=== PATIENT | female | born 1995 | race Caucasian/White ===

== ENCOUNTER 2017-02-07 23:19 | Emergency (ER) | payer SELFPAY ==
[~2017-02-07] VITALS: Ht 172.7 cm; Wt 106.6 kg
--- NOTE | 2017-02-07 23:47 | PHYS DOC ---
Adult General Chief Complaint Chief Complaint: ANKLE PROBLEM HPI HPI Patient is a 21 year old female presents emergency department stating that she was running in the driveway and she fell. She is stating that she is having pain on the right lateral part of the ankle as well as the foot area. She does have swelling noted along the fifth metatarsal area and follow-up right lateral ankle. Patient does have an abrasion noted on the lateral part of the foot. Patient with peripheral pulses 2+ cap refill brisk less than 2 seconds. Taken ibuprofen 800 mg as well as ice packs placed on the area. She does present with a Dani wrap and placed Review of Systems Review of Systems Constitutional: Denies fever or chills [] Eyes: Denies change in visual acuity, redness, or eye pain [] HENT: Denies nasal congestion or sore throat [] Respiratory: Denies cough or shortness of breath [] Cardiovascular: No additional information not addressed in HPI [] GI: Denies abdominal pain, nausea, vomiting, bloody stools or diarrhea [] : Denies dysuria or hematuria [] Musculoskeletal: Denies back pain. C/o right ankle and foot pain Integument: Denies rash or skin lesions [] Neurologic: Denies headache, focal weakness or sensory changes [] Physical Exam Physical Exam Constitutional: Well developed, well nourished, no acute distress, non-toxic appearance. [] HENT: Normocephalic, atraumatic, bilateral external ears normal, oropharynx moist, no oral exudates, nose normal. [] Eyes: PERRLA, EOMI, conjunctiva normal, no discharge. [] Neck: Normal range of motion, no tenderness, supple, no stridor. [] Cardiovascular:Heart rate regular rhythm Lungs & Thorax: No respiratory distress noted Skin: Warm, dry, no erythema, no rash. [] Back: No tenderness Extremities: Right lateral ankle, right lateral foot tenderness, no cyanosis, no clubbing, ROM intact, no edema. Patient with swelling noted along the lateral part of the ankle and along the lateral part of the foot. Patient does have an abrasion noted on the fifth metatarsal area. Peripheral pulses are 2+ cap refill brisk less than 2 seconds patient is able to move her toes without difficulty. Sensation noted to the right fifth toe. Neurologic: Alert and oriented X 3, normal motor function, normal sensory function, no focal deficits noted. [] Psychologic: Affect normal, judgement normal, mood normal. [] Current Patient Data Lab Values Laboratory Tests Test 02/07/17 22:51 POC Urine HCG, Qualitative Hcg negative (Negative) EKG EKG [] Radiology/Procedures Radiology/Procedures [] Course & Med Decision Making Course & Med Decision Making Pertinent Labs and Imaging studies reviewed. (See chart for details) X-rays were negative for any fractures in the foot or the ankle area. Also recommended patient to use ibuprofen 800 mg every 8 hours. They sure you eat when taking this medication to prevent upset stomach. Stop taking if you develop an upset stomach. Patient will be placed in the Dani wrap in which she was resents to the ER with an will be placed in a Air-Stirrup splint. Recommended for the Dani wrap for the next 5-7 days in the Air-Stirrup splint for the next 7-10 days. Ice packs on 20 minutes off 20 minutes several times a day elevation as much as possible. Patient will be discharged home in stable condition signs symptoms to return back to emergency department as been provided. Patient will be provided with orthopedic name and number to follow up with if she continues to have pain and discomfort. [] Dragon Disclaimer Dragon Disclaimer This electronic medical record was generated, in whole or in part, using a voice recognition dictation system. Departure Departure Impression: Primary Impression: Right ankle sprain Disposition: 01 HOME, SELF-CARE Condition: STABLE Referrals: NO PCP (PCP) MIRIAN ORO MD Patient Instructions: Ankle Sprain, [id number] Additional Instructions: Foot and ankle x-rays were negative for any bony abnormalities. Ibuprofen 800 mg every 8 hours with food stop taking few develop an upset stomach. Ice packs on 20 minutes off 20 minutes several times a day. Wear the Dani wrap for the next 5-7 days the Air-Stirrup splint for the next 7- 10 days. Elevation as much as possible Follow-up with orthopedic as needed in the next 5-7 days. Return back to emergency prior signs symptoms of become worse. KHARI CABALLERO APRN Feb 07, 2017 23:46
[2017-02-08 00:40] VITALS: BP 122/77
--- NOTE | 2017-02-08 08:37 | RAD ---
ANKLE RIGHT 3V Clinical Indication: Fell and twisted ankle with pain. Comparison: None. Technique: Frontal, oblique and lateral views of the right ankle are obtained. Findings: No acute fracture or dislocation is seen. Ankle mortise is maintained. Surrounding soft tissues demonstrate no acute finding. IMPRESSION: No acute osseous injury seen.
--- NOTE | 2017-02-08 08:45 | RAD ---
FOOT RIGHT 3V Clinical Indication: fell twisted ankle and foot, Comparison: None. Technique: Frontal, oblique and lateral views of the right foot are obtained. Findings: No acute fracture or dislocation is seen. Joint spaces are maintained. Surrounding soft tissues demonstrate no acute finding. IMPRESSION: No acute osseous injury seen.
== END 2017-02-08 00:48 | disposition home or self-care (01) ==
LOC: ER 23:19
DX: S93.401A Sprain of unspecified ligament of right ankle, initial encounter (principal); W18.39XA Other fall on same level, initial encounter; Y93.89 Activity, other specified; Y99.8 Other external cause status; Y92.89 Other specified places as the place of occurrence of the external cause
CPT/HCPCS: 73610; 73630; 81025; 99285-25

== ENCOUNTER 2017-05-10 15:49 | Emergency (ER) | payer SELFPAY ==
[~2017-05-10] VITALS: Ht 170.2 cm; Wt 113.4 kg
[2017-05-10] MEDS ORDERED: IBUPROFEN 400 MG TABLET. PO ONE (16:15)
[2017-05-10 16:50] VITALS: BP 110/60
--- NOTE | 2017-05-10 16:50 | PHYS DOC ---
Past Medical History Past Medical History: No Pertinent History Past Surgical History: No Surgical History Alcohol Use: None Drug Use: None Adult General Chief Complaint Chief Complaint: CHEST PAIN HPI HPI Patient is a 21 year old female brought from work by EMS with the complaint of sharp stabbing pains in the middle of her lower chest which started about 2:30 today. It did not hit her suddenly, it began slowly. It makes her feel like it' s hard to breathe. She's had these pains intermittently for about one year. It does not seem to bother her with exertion or any particular activity. She believes it does sometimes bother her when she drinks an energy drink. States that her mother has given her ibuprofen for it in the past and that has seemed to help. 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 She was at work today when it started and her coworkers called 911. Patient's mother came to the ED and stated that she believes that the pain may be related to drinking energy drinks. She has tried to get the patient to calm her breathing down and take ibuprofen for the pain in the past but she was not able to talk to her today before the patient was transported here. Patient has no chronic medical problems. She is on no medications. Review of Systems Review of Systems Constitutional: Denies fever or chills [] Eyes: Denies change in visual acuity, redness, or eye pain [] HENT: Denies nasal congestion or sore throat [] Respiratory: Denies cough Cardiovascular: As in history of present illness for noncardiac sounding chest pain GI: Denies abdominal pain, nausea, vomiting, bloody stools or diarrhea [] : Denies dysuria or hematuria [] Musculoskeletal: Denies back pain or joint pain [] Integument: Denies rash or skin lesions [] Neurologic: Denies headache, focal weakness or sensory changes [] Current Medications Current Medications Current Medications Medications (Trade) Dose Ordered Sig/Kalen Start Time Stop Time Status Last Admin Dose Admin Ibuprofen (Motrin) 400 mg 1X ONCE 05/10/17 16:15 05/10/17 16:16 DC 05/10/17 16:14 400 MG Allergies Allergies Allergies Coded Allergies Type Severity Reaction Last Updated Verified No Known Drug Allergies 05/10/17 No Physical Exam Physical Exam Constitutional: Well developed, well nourished, no acute distress, non-toxic appearance. Pulse ox on room air 98-99%. Alert, mentating normally, warm and dry , no acute distress whatsoever. HENT: Normocephalic, atraumatic, bilateral external ears normal, nose normal. [ ] Eyes: conjunctiva normal, no discharge. [] Neck: Normal range of motion, no stridor. [] Cardiovascular:Heart rate regular rhythm, no murmur [] Lungs & Thorax: Bilateral breath sounds clear to auscultation Chest wall mildly tender to palpation over mid sternum without overlying skin abnormality, no swelling, no deformity Abdomen: Bowel sounds normal, soft, no tenderness, no masses, no pulsatile masses. [] Skin: Warm, dry, no erythema, no rash. [] Extremities: No tenderness, no cyanosis, no clubbing, ROM intact, no edema. [] Neurologic: Alert and oriented X 3, normal motor function, normal sensory function, no focal deficits noted. [] Current Patient Data Vital Signs Vital Signs Date Time Temp Pulse Resp B/P (MAP) Pulse Ox O2 Delivery O2 Flow Rate FiO2 05/10/17 16:50 68 18 110/60 (77) 98 Room Air 05/10/17 15:49 98.5 98.5 EKG EKG 12-lead EKG read by me. Sinus rhythm. Heart rate 57. There are no acute ST or T wave changes indicative of ischemia or infarction. No STEMI. 1552 [] Radiology/Procedures Radiology/Procedures [] Two-view chest x-ray read by me. No acute cardiopulmonary findings. Course & Med Decision Making Course & Med Decision Making Pertinent Labs and Imaging studies reviewed. (See chart for details) 21-year-old female who I believe has some developmental disability was brought from work by EMS with some sharp midsternal chest pains that she has had intermittently for one year. Vital signs are stable, she is not tachycardic, pulse ox on room air 98-99%. Chest x-ray, EKG did not reveal any concern for serious cause of the symptoms. The patient was given a dose of ibuprofen and stated that her pain was all gone. I discussed this with the patient and her mother. See instructions for plan. [] Dragon Disclaimer Dragon Disclaimer This electronic medical record was generated, in whole or in part, using a voice recognition dictation system. Departure Departure Impression: Primary Impression: Non-cardiac chest pain Disposition: HOME, SELF-CARE Condition: STABLE Referrals: NO PCP (PCP) Patient Instructions: Chest Pain (Nonspecific), [id number] Additional Instructions: As we discussed, today your evaluation in the emergency department did not show as the cause for your chest pain, but also we are not finding any serious cause. As we discussed, I do think it would be reasonable to try stopping the energy drinks for a week or 2 and see if this helps your pain. For pain, when you have it, try ibuprofen 400-600 mg every 6-8 hours. If this is not helping and you continue to have it, see your primary care doctor. LOAN STOREY MD May 10, 2017 16:50
--- NOTE | 2017-05-10 16:53 | RAD ---
PA and lateral chest. History: Sharp midsternal chest pain, dyspnea PA and lateral views were taken of the chest. The lungs are clear. Heart is normal in size. There is no pleural effusion. The patient has not taken a deep inspiration. Impression: 1. No acute infiltrates.
--- NOTE | 2017-05-10 18:16 | EKG ---
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
== END 2017-05-10 16:57 | disposition home or self-care (01) ==
LOC: ER 15:49
DX: R07.89 Other chest pain (principal)
CPT/HCPCS: 71020; 93005; 99284-25

== ENCOUNTER 2018-04-19 20:53 | Emergency (ER) | payer SELFPAY | END 2018-04-19 21:41 | disposition home or self-care (01) | LOC: ER 21:41 | DX: J02.9 Acute pharyngitis, unspecified (principal); H92.09 Otalgia, unspecified ear | CPT/HCPCS: 99283 ==

== ENCOUNTER 2019-07-17 18:30 | Emergency (ER) | payer MEDICAID ==
[~2019-07-17] VITALS: Ht 170.2 cm; Wt 113.4 kg
[~2019-07-17 18:30] MED LIST: AMOX1TAB61 PO; PRED-220 PO
[2019-07-17] MEDS ORDERED: fentaNYL PF VIAL 100 MCG/2 ML VIAL IV ONE (19:15)
--- NOTE | 2019-07-17 19:17 | PHYS DOC ---
Past Medical History Past Medical History: No Pertinent History Past Surgical History: Alcohol Use: None Drug Use: None Adult General Chief Complaint Chief Complaint: ABDOMINAL PAIN HPI HPI 23 female presents to the emergency Department with complaints of epigastric pain, sharp, tightness that radiates to her back. She denies any nausea or vomiting, fever, diarrhea or chills. States pain does get worse with eating. She states this is going on with however is now delivered. No workup was done at that time it was more hiatal hernia. Review of Systems Review of Systems Constitutional: Denies fever or chills [] Respiratory: Denies cough or shortness of breath [] Cardiovascular: No additional information not addressed in HPI [] GI: + epigastric abdominal pain, nausea, vomiting, bloody stools or diarrhea [] : Denies dysuria or hematuria [] Musculoskeletal: Denies back pain or joint pain [] Neurologic: Denies headache, focal weakness or sensory changes [] All other systems were reviewed and found to be within normal limits, except as documented in this note. Current Medications Current Medications Current Medications Medications (Trade) Dose Ordered Sig/Kalen Start Time Stop Time Status Last Admin Dose Admin Fentanyl Citrate (Fentanyl 2ml Vial) 50 mcg 1X ONCE 07/17/19 19:15 07/17/19 19:16 DC 07/17/19 19:24 50 MCG Allergies Allergies Allergies Coded Allergies Type Severity Reaction Last Updated Verified No Known Drug Allergies 05/10/17 No Physical Exam Physical Exam Constitutional: Well developed, well nourished, no acute distress, non-toxic appearance. [] HENT: Normocephalic, atraumatic, bilateral external ears normal, oropharynx moist, no oral exudates, nose normal. [] Eyes: PERRLA, EOMI, conjunctiva normal, no discharge. [] Cardiovascular:Heart rate regular rhythm, no murmur [] Lungs & Thorax: Bilateral breath sounds clear to auscultation [] Abdomen: Bowel sounds normal, soft, TTP RUQ and epigastric region[] Skin: Warm, dry, no erythema, no rash. [] Back: No tenderness, no CVA tenderness. [] Extremities: No tenderness, no cyanosis, no clubbing, ROM intact, no edema. [] Neurologic: Alert and oriented X 3, no focal deficits noted. [] Psychologic: Affect normal, judgement normal, mood normal. [] Current Patient Data Vital Signs Vital Signs Date Time Temp Pulse Resp B/P (MAP) Pulse Ox O2 Delivery O2 Flow Rate FiO2 07/17/19 19:24 Room Air 07/17/19 18:55 98.3 64 14 136/68 (90) 97 98.3 Lab Values Laboratory Tests Test 07/17/19 19:21 07/17/19 19:27 White Blood Count 6.6 x10^3/uL (4.0-11.0) Red Blood Count 5.12 x10^6/uL (3.50-5.40) Hemoglobin 13.3 g/dL (12.0-15.5) Hematocrit 40.0 % (36.0-47.0) Mean Corpuscular Volume 78 fL (79-100) L Mean Corpuscular Hemoglobin 26 pg (25-35) Mean Corpuscular Hemoglobin Concent 33 g/dL (31-37) Red Cell Distribution Width 13.7 % (11.5-14.5) Platelet Count 215 x10^3/uL (140-400) Neutrophils (%) (Auto) 60 % (31-73) Lymphocytes (%) (Auto) 30 % (24-48) Monocytes (%) (Auto) 7 % (0-9) Eosinophils (%) (Auto) 3 % (0-3) Basophils (%) (Auto) 1 % (0-3) Neutrophils # (Auto) 3.9 x10^3/uL (1.8-7.7) Lymphocytes # (Auto) 2.0 x10^3/uL (1.0-4.8) Monocytes # (Auto) 0.5 x10^3/uL (0.0-1.1) Eosinophils # (Auto) 0.2 x10^3/uL (0.0-0.7) Basophils # (Auto) 0.1 x10^3/uL (0.0-0.2) Sodium Level 142 mmol/L (136-145) Potassium Level 3.7 mmol/L (3.5-5.1) Chloride Level 106 mmol/L (98-107) Carbon Dioxide Level 27 mmol/L (21-32) Anion Gap 9 (6-14) Blood Urea Nitrogen 13 mg/dL (7-20) Creatinine 0.8 mg/dL (0.6-1.0) Estimated GFR (Cockcroft-Gault) 90.5 BUN/Creatinine Ratio 16 (6-20) Glucose Level 119 mg/dL (70-99) H Calcium Level 9.3 mg/dL (8.5-10.1) Total Bilirubin 0.2 mg/dL (0.2-1.0) Aspartate Amino Transferase (AST) 40 U/L (15-37) H Alanine Aminotransferase (ALT) 81 U/L (14-59) H Alkaline Phosphatase 85 U/L (46-116) Total Protein 7.1 g/dL (6.4-8.2) Albumin 3.7 g/dL (3.4-5.0) Albumin/Globulin Ratio 1.1 (1.0-1.7) Lipase 97 U/L (73-393) POC Urine HCG, Qualitative Hcg negative (Negative) Laboratory Tests 07/17/19 19:21 Laboratory Tests 07/17/19 19:21 EKG EKG [] Radiology/Procedures Radiology/Procedures [facility] [address] [place] [address] IMAGING REPORT Signed PATIENT: BOAZ CELAYAACCOUNT: [id number] : 1995 LOCATION: ER AGE: 23 SEX: F EXAM STATUS: REG ER ORD. PHYSICIAN: BRONSON WALLIS MD REASON: RUQ PROCEDURE: ABDOMEN LTD CLINICAL HISTORY: Right upper quadrant pain COMPARISON: None available. TECHNIQUE: Limited ultrasound examination of the right upper quadrant of the abdomen was performed. Exam is mildly limited by overlying bowel gas. FINDINGS: Visualized portions of the pancreas are unremarkable. Liver: The liver measures 18.8 cm cm in length in the right mid clavicular line. Increased hepatic echogenicity relative to the right kidney consistent with hepatic steatosis. There is no focal abnormality of the liver. Portal and hepatic venous flow is confirmed with normal waveforms. Gallbladder/Biliary: The gallbladder is distended with gallbladder sludge. No discrete gallstone is seen. No wall thickening or pericholecystic fluid.. There is no pain with direct transducer pressure over the gallbladder.The common bile duct measures 0.4 cm. The right kidney measures 11.2 cm in bipolar length. No focal renal lesion. No hydronephrosis. No hydroureter. Pancreas is not well seen. There is no free fluid in the subhepatic space. IMPRESSION: 1. Gallbladder sludge without sonographic evidence for acute cholecystitis. 2. Hepatomegaly and hepatic steatosis. Electronically signed by: Andrew Ortega MD (07/17/2019 8:21 PM) [facility] DICTATED and SIGNED BY: ANDREW ORTEGA MD DATE: 07/17/192020 [] Course & Med Decision Making Course & Med Decision Making Pertinent Labs and Imaging studies reviewed. (See chart for details) []23 female presents to the emergency Department with complaints of epigastric pain, sharp, tightness that radiates to her back. She denies any nausea or vomiting, fever, diarrhea or chills. States pain does get worse with eating. She states this is going on with however is now delivered. No workup was done at that time it was more hiatal hernia. Labs/Imaging reviewed. Fentanyl IV x 1 for pain. AST/ALT mildly elevated, lipase/alk phos normal. US reviewed with evidence of biliary sludge, no evidence of sonographic cholecystitis. Recommend dietary changes, pain medications, nausea medication. Recommend follow with primary care physician and elective evaluation with surgery as an outpatient. Number provided for patient to contact, did not call surgery in ER Dragregulo Disclaimer Dragregulo Disclaimer This electronic medical record was generated, in whole or in part, using a voice recognition dictation system. 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 Please contact their office to make appointment) Return to the ER with complaints of worsening pain, fever, intractable nausea/vomiting Scripts Ondansetron Hcl (ZOFRAN) 4 Mg Tablet 1 TAB PO PRN Q6-8HRS for nausea, #12 TAB Prov: BRONSON WALLIS MD 07/17/19 Hydrocodone/Apap 5-325 (NORCO 5-325 TABLET) 1 Each Tablet 1 TAB PO PRN Q6HRS PRN for PAIN, #10 TAB 0 Refills Prov: BRONSON WALLIS MD 07/17/19 BRONSON WALLIS MD Jul 17, 2019 19:17
[2019-07-17 19:31] LABS: BASO # 0.1 x10^3/uL (0.0-0.2); BASO % 1 % (0-3); EOS # 0.2 x10^3/uL (0.0-0.7); EOS % 3 % (0-3); HEMOGLOBIN 13.3 g/dL (12.0-15.5); LYMPH % 30 % (24-48); MEAN CORPUSCULAR HEMOGLOBIN 26 pg (25-35); MEAN CORPUSCULAR HGB CONC 33 g/dL (31-37); MEAN CORPUSCULAR VOLUME 78 fL (79-100); MONO # 0.5 x10^3/uL (0.0-1.1); MONO % 7 % (0-9); NEUT # 3.9 x10^3/uL (1.8-7.7); NEUT % 60 % (31-73); PLATELET COUNT 215 x10^3/uL (140-400); RED BLOOD COUNT 5.12 x10^6/uL (3.50-5.40); RED CELL DISTRIBUTION WIDTH 13.7 % (11.5-14.5); WHITE BLOOD COUNT 6.6 x10^3/uL (4.0-11.0)
[2019-07-17 19:38] LABS: CALCIUM 9.3 mg/dL (8.5-10.1); CREATININE 0.8 mg/dL (0.6-1.0); GFR 90.5; POTASSIUM 3.7 mmol/L (3.5-5.1)
[2019-07-17 19:44] LABS: ALBUMIN 3.7 g/dL (3.4-5.0); ALBUMIN/GLOBULIN RATIO 1.1 (1.0-1.7); TOTAL BILIRUBIN 0.2 mg/dL (0.2-1.0); TOTAL PROTEIN 7.1 g/dL (6.4-8.2)
--- NOTE | 2019-07-17 20:24 | RAD ---
CLINICAL HISTORY: Right upper quadrant pain COMPARISON: None available. TECHNIQUE: Limited ultrasound examination of the right upper quadrant of the abdomen was performed. Exam is mildly limited by overlying bowel gas. FINDINGS: Visualized portions of the pancreas are unremarkable. Liver: The liver measures 18.8 cm cm in length in the right mid clavicular line. Increased hepatic echogenicity relative to the right kidney consistent with hepatic steatosis. There is no focal abnormality of the liver. Portal and hepatic venous flow is confirmed with normal waveforms. Gallbladder/Biliary: The gallbladder is distended with gallbladder sludge. No discrete gallstone is seen. No wall thickening or pericholecystic fluid.. There is no pain with direct transducer pressure over the gallbladder.The common bile duct measures 0.4 cm. The right kidney measures 11.2 cm in bipolar length. No focal renal lesion. No hydronephrosis. No hydroureter. Pancreas is not well seen. There is no free fluid in the subhepatic space. IMPRESSION: 1. Gallbladder sludge without sonographic evidence for acute cholecystitis. 2. Hepatomegaly and hepatic steatosis. Electronically signed by: Andrew Ortega MD (07/17/2019 8:21 PM) [facility]
[2019-07-17 20:27] VITALS: BP 128/59
[2019-07-17] MEDS ORDERED: HYDR-3164 PO (20:31)
[2019-07-17] MEDS ORDERED: ONDA4TAB7 PO (20:31)
== END 2019-07-17 20:52 | disposition home or self-care (01) ==
LOC: ER 18:30
DX: K80.50 Calculus of bile duct without cholangitis or cholecystitis without obstruction (principal); R16.0 Hepatomegaly, not elsewhere classified; K76.0 Fatty (change of) liver, not elsewhere classified
CPT/HCPCS: 36415; 76705; 80053; 81025; 83690; 85025; 96374; 99285; J3010